=== PATIENT | male | born 1945 | race Hispanic/Latino ===

== ENCOUNTER → 2018-05-27 | Outpatient (CLI) | payer OTHER ==
[~2018-05-27] MED LIST: AMLO5TAB9 PO; ASPI-555 PO; ATEN25TA PO; DESV50TA14 PO; FENO150C4 PO; FISH1CAP27 PO; HYDR-4060 PO; OLME40TA8 PO; PREG75 PO; ROSU10TA27 PO; VITA1CAP PO; [UNRECOGNIZED DRUG - CODE] PO
== END | disposition home or self-care (01) ==
LOC: RAH 12:36
PROVIDERS: ATTEND Internal Medicine
DX: M47.22 Other spondylosis with radiculopathy, cervical region (principal); M48.02 Spinal stenosis, cervical region; M50.223 Other cervical disc displacement at C6-C7 level
CPT/HCPCS: 72141

== ENCOUNTER → 2020-08-15 | Outpatient (CLI) | payer MEDICARE ==
[~2020-08-15] MED LIST changes: +AMLO-257 PO; -AMLO5TAB9 PO; -ASPI-555 PO; +ASPI-556 PO; -ROSU10TA27 PO; +ROSU10TA28 PO
== END | disposition home or self-care (01) ==
LOC: OIH 10:40
PROVIDERS: ATTEND Podiatrist
DX: M20.12 Hallux valgus (acquired), left foot (principal); M20.42 Other hammer toe(s) (acquired), left foot; M21.612 Bunion of left foot
CPT/HCPCS: 73630

== ENCOUNTER → 2020-08-23 | Outpatient (CLI) | payer MEDICARE | END | disposition home or self-care (01) | LOC: OIH 14:23 | PROVIDERS: ATTEND Internal Medicine | DX: Q25.46 Tortuous aortic arch (principal); I10 Essential (primary) hypertension | CPT/HCPCS: 71046 ==

== ENCOUNTER → 2020-10-10 | Outpatient (CLI) | payer MEDICARE | END | disposition home or self-care (01) | LOC: RAH 11:28 | PROVIDERS: ATTEND Podiatrist | DX: M20.42 Other hammer toe(s) (acquired), left foot (principal); M25.475 Effusion, left foot; M25.872 Other specified joint disorders, left ankle and foot; T84.293S Other mechanical complication of internal fixation device of bones of foot and toes, sequela | CPT/HCPCS: 73630 ==

== ENCOUNTER → 2020-10-25 | Outpatient (CLI) | payer MEDICARE | END | disposition home or self-care (01) | LOC: OIH 10:10 | PROVIDERS: ATTEND Podiatrist | DX: M20.12 Hallux valgus (acquired), left foot (principal); M20.42 Other hammer toe(s) (acquired), left foot; Z98.890 Other specified postprocedural states | CPT/HCPCS: 73630 ==

== ENCOUNTER → 2020-12-24 | Outpatient (CLI) | payer MEDICARE | END | disposition home or self-care (01) | LOC: OIH 14:03 | PROVIDERS: ATTEND Internal Medicine | DX: M77.32 Calcaneal spur, left foot (principal); M79.89 Other specified soft tissue disorders; M20.42 Other hammer toe(s) (acquired), left foot | CPT/HCPCS: 73630 ==

== ENCOUNTER → 2023-09-30 | Outpatient (CLI) | payer MEDICARE ==
[~2023-09-30] MED LIST changes: +OLME40TA70 PO; -OLME40TA8 PO; -ROSU10TA28 PO; +ROSU10TA72 PO
== END | disposition home or self-care (01) ==
LOC: RAH 09:47
PROVIDERS: ATTEND Internal Medicine
DX: S43.402A Unspecified sprain of left shoulder joint, initial encounter (principal); M19.012 Primary osteoarthritis, left shoulder; M25.512 Pain in left shoulder; X58.XXXA Exposure to other specified factors, initial encounter; Y93.89 Activity, other specified; Y92.89 Other specified places as the place of occurrence of the external cause; Y99.8 Other external cause status
CPT/HCPCS: 73030

== ENCOUNTER → 2024-08-08 | Outpatient (CLI) | payer MEDICARE ==
--- NOTE | 2024-08-10 10:33 | HMCIMG ---
CHEST 2VWS HISTORY: Coronary artery disease COMPARISON: None FINDINGS: Frontal and lateral projections of the chest were obtained. There is no acute pulmonary infiltrates or failure. The heart is oral line enlarged. Sternotomy changes are seen. Postop changes are seen of the lumbar cervical spine. No evidence of aortic calcification is seen. Degenerative changes are seen of the thoracolumbar spine. IMPRESSION: 1. No acute pulmonary infiltrates.
== END | disposition home or self-care (01) ==
LOC: RAH 09:21
PROVIDERS: ATTEND Internal Medicine
DX: I25.10 Atherosclerotic heart disease of native coronary artery without angina pectoris (principal); I51.7 Cardiomegaly; M47.815 Spondylosis without myelopathy or radiculopathy, thoracolumbar region; Z98.890 Other specified postprocedural states
CPT/HCPCS: 71046

== ENCOUNTER → 2024-12-30 | Outpatient (CLI) | payer MEDICARE ==
[~2024-12-30] MED LIST changes: +GADOTERATE MEGLUMINE 10 MMOL/20 ML VIAL IV ONE; -ROSU10TA72 PO; +ROSU10TA98 PO
--- NOTE | 2025-01-04 19:02 | HMCIMG ---
EXAM: MAGNETIC RESONANCE IMAGING OF THE CERVICAL SPINE WITHOUT AND WITH INTRAVENOUS CONTRAST Technique: Multiplanar, multisequence magnetic resonance imaging of the cervical spine was performed before and after intravenous contrast administration. Sequences included sagittal T1-weighted, T2-weighted, and short tau inversion recovery; axial T2-weighted and T1-weighted; and post-contrast fat-suppressed T1-weighted images through the cervical spine. Evaluation of osseous foramina and osteophytes is limited on magnetic resonance imaging compared with computed tomography. Image quality is limited by motion artifact. Clinical Information: Radiculopathy involving the cervical region. Comparison: Magnetic resonance imaging of the cervical spine without contrast dated May 27, 2018 at 13:22 Eastern Standard Time;. Findings: Vertebral body heights are maintained without compression deformity. There are multilevel anterior osteophytes. There is straightening of the normal cervical lordosis. There is no spondylolisthesis. There is mild multilevel intervertebral disc height loss. There is minimal multilevel intervertebral disc desiccation. Bone marrow signal is normal without suspicious replacement or edema. The craniovertebral junction is normal without cerebellar tonsillar ectopia or Chiari malformation. Paraspinal soft tissues are unremarkable without edema or focal mass. The cervical spinal cord is normal in caliber and signal without intramedullary lesion. There is no abnormal post-contrast enhancement of the cord, meninges, vertebrae, or paraspinal soft tissues. C2???3: Mild circumferential disc bulge effaces the ventral thecal sac. Facet arthropathy is present. Moderate bilateral neural foraminal stenosis. Moderate central canal stenosis. C3???4: Diffuse disc bulge effaces the ventral thecal sac. Facet joints are preserved without edema. Severe bilateral neural foraminal stenosis with impingement of the exiting C4 nerve roots. Moderate central canal stenosis. C4???5: Diffuse disc bulge effaces the ventral thecal sac. Facet joints are preserved without edema. Severe bilateral neural foraminal stenosis with impingement of the exiting C5 nerve roots. Moderate central canal stenosis. C5???6: Diffuse disc bulge effaces the ventral thecal sac. Facet joints are preserved without edema. Severe bilateral neural foraminal stenosis with impingement of the exiting C6 nerve roots. Moderate central canal stenosis. C6???7: Diffuse disc bulge effaces the ventral thecal sac. Facet arthropathy is present. Severe left neural foraminal stenosis with impingement of the exiting C7 nerve root; lesser involvement on the right. Moderate central canal stenosis. C7???T1: Intervertebral disc height is maintained without significant bulge or herniation. Facet joints are preserved. The central canal and neural foramina are patent.IMPRESSION: 1. Multilevel cervical spondylosis, most severe at C3-C4 through C6-C7, with: 2. Straightening of the normal cervical lordosis. 3. Mild multilevel intervertebral disc height loss and minimal disc desiccation. 4. No cord signal abnormality or abnormal enhancement. 5. No compression deformity or spondylolisthesis. 6. Normal craniovertebral junction without cerebellar tonsillar ectopia or Chiari malformation. 7. Overall findings have progressed compared to the prior exam. Post surgical changes are new compared to the prior exam. /[place]
== END | disposition home or self-care (01) ==
LOC: RAH 08:45
PROVIDERS: ATTEND Internal Medicine
DX: M47.22 Other spondylosis with radiculopathy, cervical region (principal); M48.02 Spinal stenosis, cervical region; M50.10 Cervical disc disorder with radiculopathy, unspecified cervical region; M25.78 Osteophyte, vertebrae; E78.5 Hyperlipidemia, unspecified; I10 Essential (primary) hypertension; I25.810 Atherosclerosis of coronary artery bypass graft(s) without angina pectoris; E11.42 Type 2 diabetes mellitus with diabetic polyneuropathy; E66.09 Other obesity due to excess calories; I44.1 Atrioventricular block, second degree; M50.121 Cervical disc disorder at C4-C5 level with radiculopathy; M50.122 Cervical disc disorder at C5-C6 level with radiculopathy; M50.123 Cervical disc disorder at C6-C7 level with radiculopathy; M50.11 Cervical disc disorder with radiculopathy, high cervical region; Z23 Encounter for immunization; Z95.1 Presence of aortocoronary bypass graft
CPT/HCPCS: 72156; A9575